=== PATIENT | male | born 1945 | race Caucasian/White ===

== ENCOUNTER 2022-03-01 12:13 | Emergency (ER) | payer OTHER, BC ==
[2022-03-01] MEDS ORDERED: Nitroglycerin 0.4 MG Tab.SL SL PRN (12:33)
[2022-03-01] MEDS ORDERED: Morphine 4 MG/ML Syringe IVPUSH PRN (12:33)
[2022-03-01] MEDS ORDERED: Aspirin 81 MG Tab.Chew PO ONE (12:33)
[2022-03-01] MEDS ORDERED: Sodium Chloride 0.9% 10 ML Syringe FLUSH PRN (12:33)
[2022-03-01 13:23] LABS: TROPONIN I HIGH SENSITIVITY 4.9 pg/mL (<=60.3)
[2022-03-01] MEDS ORDERED: Lactated Ringers 1,000 ML IV ONE (13:27)
[2022-03-01] MEDS ORDERED: Sodium Chloride 0.9% 10 ML Syringe FLUSH ONE (14:08)
[2022-03-01] MEDS ORDERED: Sodium Chloride 0.9% 75 ML IV SCH (14:15)
[2022-03-01] MEDS ORDERED: Iopamidol 755 Mg/ML 100 ML Bottle IV SCH (14:15)
== END 2022-03-01 16:29 | disposition home or self-care (01) ==
LOC: JP.ED 12:13
DX: I95.2 Hypotension due to drugs (principal); R07.89 Other chest pain; I10 Essential (primary) hypertension; Z79.899 Other long term (current) drug therapy
CPT/HCPCS: 36415; 71045; 71275; 80053; 83605; 84484; 85025; 85379; 93005; 93010; 99283; 99285; A9270; J3490; J7120; Q9967

== ENCOUNTER 2024-04-19 07:18 | Emergency (ER) | payer OTHER, MEDICARE ==
[2024-04-19] MEDS ORDERED: Nitroglycerin/D5W 25 MG/250 ML BOTTLE IV SCH (07:45)
[2024-04-19] MEDS: Furosemide 100 MG/10 ML SDV IVPUSH ONE (09:02)
== END 2024-04-19 10:34 ==
LOC: JP.ED 07:18
DX: H54.61 Unqualified visual loss, right eye, normal vision left eye (principal); I10 Essential (primary) hypertension; Z87.891 Personal history of nicotine dependence; Z79.899 Other long term (current) drug therapy
CPT/HCPCS: 93005; 99284; 99285

== ENCOUNTER 2024-10-27 13:15 | Emergency (ER) | payer OTHER, MEDICARE ==
[2024-10-27] MEDS: Ketorolac 30 MG/ML SDV IM ONE (14:14)
[2024-10-27] MEDS: Cyclobenzaprine 10 MG Tab PO ONE (14:14)
[2024-10-27] MEDS: HYDROmorphone 1 MG/ML Syringe IM ONE (15:22)
== END 2024-10-27 16:25 | disposition home or self-care (01) ==
LOC: JP.ED 13:15
DX: M54.50 Low back pain, unspecified (principal); I10 Essential (primary) hypertension; E78.00 Pure hypercholesterolemia, unspecified; K21.9 Gastro-esophageal reflux disease without esophagitis; Z86.73 Personal history of transient ischemic attack (TIA), and cerebral infarction without residual deficits; Z79.899 Other long term (current) drug therapy; Z79.82 Long term (current) use of aspirin
CPT/HCPCS: 72100; 96372; 99283; A9270; J1171; J1885

== ENCOUNTER 2025-05-17 06:30 | Day surgery (SDC) | payer MEDICARE, OTHER ==
[2025-05-17] MEDS ORDERED: fentaNYL 50 MCG/ML SDV ONE (07:10)
[2025-05-17] MEDS ORDERED: Propofol 200 MG/20 ML SDV ONE (07:10)
[2025-05-17] MEDS: Lactated Ringers 1,000 ML IV SCH (07:23)
== END 2025-05-17 09:40 | disposition home or self-care (01) ==
LOC: JP.SDS 06:30
PROVIDERS: ATTEND Surgery
DX: K22.70 Barrett's esophagus without dysplasia (principal); K29.70 Gastritis, unspecified, without bleeding; N18.9 Chronic kidney disease, unspecified
CPT/HCPCS: 00731; 43239; 88305; J2704; J3010; J7120